=== PATIENT | female | born 1955 | race Caucasian/White ===

== ENCOUNTER → 2017-04-26 | Day surgery (SDC) | payer BC ==
--- NOTE | 2017-04-25 09:23 | TH ---
cc: DENNY LORA M.D. DATE: DATE OF 1955 PROCEEDED TO BE PERFORMED Debridement of the right breast with tissue rearrangement HISTORY OF PRESENT ILLNESS This a 62-year-old female who underwent a bilateral reduction on November 29 of last year. She did have a revision on 01/06/2016 and with this we proceeded to perform in which the breast had a significant loss of tissue. We were having some issues with some tissue that has gotten infected and is nonhealing on the right breast, the reason for which we are doing this procedure. PAST MEDICAL HISTORY 1. Otherwise significant for cardiac heart failure. 2. Coronary artery disease. 3. Stroke. 4. GERD. 5. Hypertension. 6. Asthma. 7. Atrial fibrillation. OTHER SURGICAL HISTORY OF INTEREST 1. Tonsillectomy. 2. Hysterectomy. 3. Breast reduction and debridement with radiation. MEDICATIONS 1. Coumadin which the patient has stopped and switched to Lovenox. 1. Losartan. 2. Procardia. 3. Hydrochlorothiazide. 4. Inderal. 5. Protonix. 6. Lipitor. 7. Vitamin K. ALLERGIES SULFA. SOCIAL HISTORY Ex-smoker. HABITS Otherwise unremarkable. PHYSICAL EXAMINATION CONSTITUTIONAL/GENERAL APPEARANCE: The patient is a well-developed 62-year-old female in no acute distress. Body habitus is within normal limits. There appear to be no deformities. Appears to have attention to grooming. HEENT: Eyes Conjunctivae and lids are within normal anatomical limits. The pupils are reactive to light and accommodation, size, and symmetry. There is no evidence of exudate, hemorrhage, or vessel change. Ears, mouth, nose, and throat The external inspection of the ears and nose fails to demonstrate any pathology, scars, lesions, or masses. Nasal mucosa, septum, and turbinates appear to be well hydrated as well as the lips and gums. No evidence of masses in the hypopharynx or submental area. RESPIRATORY: The patient shows no evidence of intercostal refractions. Otherwise, lungs are clear to auscultation without any abnormal sounds or rubs. CARDIOVASCULAR: The patient has a normal heart rate and rhythm. There is no evidence of noticed carotid bruits. Femoral pulses and pedal pulses in extremities are also within normal limits. GASTROINTESTINAL/ABDOMEN: Soft with no evidence of masses or tenderness. Unable to palpate the liver or spleen. No evidence of hernia. MUSCULOSKELETAL: Appears to be reasonable range of motion on the head, neck, spine, ribs, pelvis, right upper extremity, left upper extremity, right lower extremity, and left lower extremity. The muscle strength and tone appears to be equal and within accepted limits. SKIN: There is no rashes, lesions, or ulcers on the trunk, back, and extremities. NEUROLOGICAL: Examination is grossly normal. PSYCHIATRIC: The patient appears to have good orientation of time, place, and person. Does not appear to have any mood effects of depression, anxiety, or agitation. RIGHT BREAST: The right breast indeed shows an area of drainage with significant opening around the areolar area as well as down below. PLAN The plan is debridement of nonviable tissue with tissue rearrangement. MD SANDRINE Decker/FRANCO /9:07 AM /9:13 AM
[~2017-04-26] MED LIST: ACETAMINOPHEN 1000 MG/100 ML VIAL IV ONE; ADVAI250I INH; ASPI81 PO; ATOR10 PO; BACITRACIN IM FOR SOLN 50,000 UNIT VIAL ONE; BUPIVACAINE/EPINEPHRINE 0.25% 50 ML VIAL ONE; COZA100T PO; DORZ1SOL2 OU; DUONI NEB; FLEC50TA PO; GENTAMICIN SULFATE 80 MG/2 ML VIAL ONE; HYDR-2768 PO; IMDU30TA PO; KETOROLAC TROMETHAMINE 30 MG/ML (IVP) VIAL IV PUSH ONE; LACTATED RINGER'S 1000 ML INJ 1,000 ML ONE; LIDOCAINE 1%/EPINEPHrine 1:100,000 SOLN 20 ML VIAL ONE; LORTA5 PO; MIDAZOLAM HCL 2 MG/2 ML VIAL ONE; NITR.4 SL; ONDANSETRON HCL 4 MG/2 ML VIAL IV PUSH ONE; POTA-267 PO; POTA20PA PO; PROP40TA27 PO; PROPOFOL 200 MG/20 ML AMP IV ONE; PROT40TA PO; RESP: ALBUTEROL 2.5 MG/3 ML NEB (SCH) ONE; SODIUM CHLORIDE 0.9% 20 ML VIAL ONE; SPIRCAP INH; WARF3TAB PO; XALA0.00 EACH EYE; ZOLP10TA3 PO; ceFAZolin INJ 1,000 MG VIAL ONE
--- NOTE | 2017-04-26 12:46 | TN ---
cc: THONG BRUNSON DATE OF SURGERY 04/26/2017 PREOPERATIVE DIAGNOSIS Status post bilateral breast reduction for macromastia, further development of necrotic infected tissue right breast. POSTOPERATIVE DIAGNOSIS Status post bilateral breast reduction for macromastia, further development of necrotic infected tissue right breast. PROCEDURE Debridement of right breast tissue with mastotomy and tissue rearrangement totaling 403sq cm. SURGEON Thong Brunson MD ANESTHESIA LMA general, also utilized approximately 30 cc of 1% lidocaine with epinephrine COMPLICATIONS None DRAINS Two DEXTER drains, one 10 and one 7. PROCEDURE She was properly consented, marked and anesthetized. The skin was sterilized with Betadine solution, and sterile draping applied. The patient had a previous reduction mammoplasty in which there was some drainage from the areolar area as well as from the base. This was properly connected finding a significant amount of necrotic tissue in surrounding area. Utilizing electrocautery, I debrided the whole area mass having mostly the removal of what appears to be the center pedicle. This was properly removed and sent to pathology for analysis. After copious antibiotic irrigation, I proceeded and performed the tissue rearrangment with a primary defect of 13 x13 and a secondary defect of 13 x 18 sq cm with approximation of the tissue lateral to medial in order to bring some sort of mat to the breast. We did so utilizing 2-0 Monocryl suture and after applying two DEXTER drains, one 10, one 7 that will drain superolateral and inferomedial, I proceeded and secured this with 2-0 Monocryl suture. This closure was done utilizing a vertical mattress 2-0 Prolene. A Xeroform gauze was applied with breast fluffs and tape. Overall, the patient tolerated the procedure well. She was awakened and extubated in the operating room and transferred back to the postanesthesia care unit in stable condition. There were no complications appreciated. The patient tolerated the procedure fairly well. MD SANDRINE Decker/JAM /12:29 PM /12:41 PM KURT[place]
== END | disposition home or self-care (01) ==
LOC: ESDC 09:12
PROVIDERS: ATTEND Plastic Surgery
DX: S21.001A Unspecified open wound of right breast, initial encounter (principal); B96.89 Other specified bacterial agents as the cause of diseases classified elsewhere
CPT/HCPCS: 00400; 11042; 14301; 14302; 87070; 87205; 88304; J0131; J0690; J1580; J1885; J2250; J2405; J3010; J7120; J7613; 88307